=== PATIENT | male | born 1975 | race Caucasian/White ===

== ENCOUNTER 2016-09-16 23:25 | Emergency (ER) | payer MEDICAID ==
[2016-09-16 23:32] VITALS: BP 138/96; PULSE 107; RESP 18; TEMP 98.1
[2016-09-16] MEDS ORDERED: DIPH,PERTUS(ACELL)TETVAC-LF 0.5 ML VIAL IM ONE (23:47)
[2016-09-16] MEDS ORDERED: IBUPROFEN 600 MG STARTER PACK 4 TAB BTL PO STA (23:50)
[2016-09-16] MEDS ORDERED: CEPHALEXIN 500MG STARTER PACK 4 CAP BTL PO STA (23:50)
--- NOTE | 2016-09-16 23:55 | ED ---
General Adult HPI - General Chief complaint: Wound/Laceration Stated complaint: R hand laceration/infection Time Seen by Provider: 09/16/16 23:49 Source: patient, RN notes reviewed Mode of arrival: ambulatory Limitations: no limitations - History of Present Illness Initial comments: Patient 41-year-old male who presents emergency room today with chief complaint of a laceration to the left index finger that occurred approximately 2 days ago. He does admit that he was cleaning the dishes and a knife caught his finger causing a laceration. He is worried about infection today has just been increased redness swelling to this area they see some faint redness coming up the back of his hand. States is unsure of his tetanus status. He denies any other complaints or symptoms. Patient denies any recent fever, chills, shortness of breath, chest pain, back pain, abdominal pain, nausea or vomiting, dysuria or hematuria, constipation or diarrhea, headaches or visual changes, or any other complaints. - Related Data Home Medications Medication Instructions Recorded Confirmed ALPRAZolam 1 mg PO HS 07/10/14 12/08/15 Nortriptyline [Pamelor] 100 mg PO HS 07/10/14 12/08/15 Omeprazole [PriLOSEC] 20 mg PO HS 07/10/14 12/08/15 Ranitidine HCl [Zantac] 150 mg PO HS 07/10/14 12/08/15 Buta/APAP/Caf/Cod 50-882-99-30 1 tab PO DIRECTED PRN 10/27/15 12/08/15 [Fioricet w/Cod 96-189-17-30MG] Previous Rx's Medication Instructions Recorded HYDROcodone/APAP 5-325MG [[place] 5] 1 each PO Q4HR PRN #20 tab 12/08/15 Ibuprofen [Motrin] 600 mg PO Q6HR PRN #20 tab 12/08/15 Orphenadrine [Norflex] 100 mg PO Q12H PRN #12 tablet.er 12/08/15 Cephalexin [Keflex] 500 mg PO Q12HR 10 Days 09/16/16 Ibuprofen [Motrin] 600 mg PO Q6HR PRN #40 day 09/16/16 Allergies Allergy/AdvReac Type Severity Reaction Status Date / Time No Known Allergies Allergy Verified 09/16/16 23:31 Review of Systems ROS Statement: Those systems with pertinent positive or pertinent negative responses have been documented in the HPI. ROS Other: All systems not noted in ROS Statement are negative. Past Medical History Past Medical History: Eye Disorder, GERD/Reflux Additional Past Medical History / Comment(s): LT EYE MUSCLE PROB CHILD. Kidney Stones. IBS. Hiatal Hernia. Migraines. History of Any Multi-Drug Resistant Organisms: None Reported Past Surgical History: Cholecystectomy Additional Past Surgical History / Comment(s): LT Eye Surgery. EXC FATTY TUMOR LT SHOULDER/NECK. Past Anesthesia/Blood Transfusion Reactions: Motion Sickness Past Psychological History: Anxiety Smoking Status: Never smoker Past Alcohol Use History: Occasional Past Drug Use History: None Reported - Past Family History Mother Family Medical History: No Reported History General Exam - General Exam Comments Initial Comments: General: The patient is awake and alert, in no distress, and does not appear acutely ill. Neck: The neck is supple, there is no tenderness or JVD. Cardiovascular: There is a regular rate and rhythm. No murmur, rub or gallop is appreciated. Respiratory: Lungs are clear to auscultation, respirations are non-labored, breath sounds are equal. No wheezes, stridor, rales, or rhonchi. Musculoskeletal/skin: mild swelling to the left index finger. Local redness to the proximal phalanx. Cap refill less than 2 seconds. Patient shows limited range of motion with flexion at the PIP joint. Fully able to extend. Pulses are equal bilaterally 2+. Strength 4/5 due to pain. Mild redness locally to the area with faintness going up the back of the left hand. Neurological: A&O x 3. CN II-XII intact, There are no obvious motor or sensory deficits. Coordination appears grossly intact. Speech is normal. Psychiatric: Normal mood and affect. Limitations: no limitations Course Vital Signs 09/16/16 23:29 Temperature 98.1 F Pulse Rate 107 H Respiratory 18 Rate Blood Pressure 138/96 O2 Sat by Pulse 97 Oximetry Medical Decision Making - Medical Decision Making patient will be started on antibiotics. Advised close follow-up over the next 2 days. Advised return if symptoms increase or worsen. Disposition Clinical Impression: Laceration, Cellulitis Disposition: HOME SELF-CARE Condition: Good Instructions: Laceration (ED) Additional Instructions: Please use medication as discussed. please continue to elevate above the heart.Please follow-up with family doctor in the next 2 days of symptoms have not improved. Please return to emergency room if the symptoms increase or worsen or for any other concerns. Prescriptions: Cephalexin [Keflex] 500 mg PO Q12HR 10 Days Ibuprofen [Motrin] 600 mg PO Q6HR PRN #40 day PRN Reason: Pain Time of Disposition: 23:54
== END 2016-09-17 00:30 | disposition home or self-care (01) ==
LOC: EC 23:25
DX: S61.211A Laceration without foreign body of left index finger without damage to nail, initial encounter (principal); L03.012 Cellulitis of left finger; K21.9 Gastro-esophageal reflux disease without esophagitis; K58.9 Irritable bowel syndrome, unspecified; F41.9 Anxiety disorder, unspecified; Z23 Encounter for immunization; Z79.899 Other long term (current) drug therapy; W26.0XXA Contact with knife, initial encounter
CPT/HCPCS: 90471; 90715; 99282

== ENCOUNTER → 2017-05-11 | Outpatient (CLI) | payer MEDICAID ==
[2017-05-11 20:23] LABS: Basophils # (A) 0.1 k/uL (0-0.2); Basophils % (A) 1 %; Eosinophils # (A) 0.1 k/uL (0-0.7); Eosinophils % (A) 1 %; HCT 52.4 % (39.0-53.0); HGB 17.8 gm/dL (13.0-17.5); Lymphocytes # (A) 2.1 k/uL (1.0-4.8); Lymphocytes % (A) 27 %; MCH 30.5 pg (25.0-35.0); MCHC 33.9 g/dL (31.0-37.0); Mean Platelet Volume 6.7; Monocytes # (A) 0.6 k/uL (0-1.0); Monocytes % (A) 8 %; Neutrophils # (A) 4.8 k/uL (1.3-7.7); Neutrophils % (A) 62 %; Platelet Count 290 k/uL (150-450); RBC 5.82 m/uL (4.30-5.90); RDW 13.7 % (11.5-15.5); WBC 7.8 k/uL (3.8-10.6)
[2017-05-11 20:29] LABS: ALT 83 U/L (21-72); AST 48 U/L (17-59); Albumin 4.5 g/dL (3.5-5.0); Alkaline Phosphatase 161 U/L (38-126); Anion Gap 12 mmol/L; Blood Urea Nitrogen 18 mg/dL (9-20); Carbon Dioxide 24 mmol/L (22-30); Chloride 104 mmol/L (98-107); Cholesterol 318 mg/dL (<200); Glucose 82 mg/dL (74-99); HDL Cholesterol 61 mg/dL (40-60); LDL Cholesterol,Calculated 209 mg/dL (0-99); Potassium 4.1 mmol/L (3.5-5.1); Sodium 140 mmol/L (137-145); Total Bilirubin 1.1 mg/dL (0.2-1.3); Triglycerides 240 mg/dL (<150)
[2017-05-11 20:43] LABS: T4, Free (Free Thyroxine) 1.19 ng/dL (0.78-2.19)
[2017-05-13 08:56] LABS: GGT 66 U/L (15-73)
== END | disposition home or self-care (01) ==
LOC: MMGSC 16:50
PROVIDERS: ATTEND Family Medicine
DX: Z00.00 Encounter for general adult medical examination without abnormal findings (principal); R79.89 Other specified abnormal findings of blood chemistry
CPT/HCPCS: 36415; 80053; 80061; 82977; 84439; 84443; 85025

== ENCOUNTER 2017-09-26 07:44 | Emergency (ER) | payer MEDICAID ==
[2017-09-26] MEDS ORDERED: SODIUM CHLORIDE 0.9% 2,000 ML IV STA (08:01)
[2017-09-26] MEDS ORDERED: ONDANSETRON 4 MG/2 ML VIAL IVP STA (08:01)
[2017-09-26] MEDS ORDERED: SODIUM CHLORIDE 0.9% 1,000 ML IV STA (08:01)
[2017-09-26] MEDS ORDERED: KETOROLAC 30 MG/ML 1 ML VIAL IVP STA (08:25)
[2017-09-26] MEDS ORDERED: ACETAMINOPHEN TAB 500 MG TAB PO STA (08:25)
[2017-09-26 08:35] LABS: Basophils % (A) 1 %; Eosinophils # (A) 0.1 k/uL (0-0.7); Eosinophils % (A) 1 %; HGB 19.9 gm/dL (13.0-17.5); Lymphocytes # (A) 0.9 k/uL (1.0-4.8); Lymphocytes % (A) 10 %; MCH 29.8 pg (25.0-35.0); MCHC 34.5 g/dL (31.0-37.0); MCV 86.3 fL (80.0-100.0); Mean Platelet Volume 6.6; Monocytes # (A) 0.7 k/uL (0-1.0); Monocytes % (A) 7 %; Neutrophils # (A) 7.4 k/uL (1.3-7.7); Neutrophils % (A) 80 %; Platelet Count 223 k/uL (150-450); RBC 6.69 m/uL (4.30-5.90); WBC 9.2 k/uL (3.8-10.6)
[2017-09-26 08:38] LABS: HCT 57.8 % (39.0-53.0)
[2017-09-26 08:42] LABS: Appearance,Urine Clear (Clear); Bacteria,Urine Rare /hpf; Bilirubin,Urine 1+ (Negative); Blood,Urine Small (Negative); Color,Urine Dark Yellow; Glucose,Urine (UA) Negative (Negative); Hyaline Casts,Urine 5 /lpf (0-2); Ketones,Urine 2+ (Negative); Leukocyte Esterase,Urine Negative (Negative); Mucus,Urine Few /hpf; Nitrite,Urine Negative (Negative); Protein,Urine 3+ (Negative); RBC,Urine 1 /hpf (0-5); Specific Gravity,Urine 1.033 (1.001-1.035); Urobilinogen,Urine <2.0 mg/dL (<2.0); WBC,Urine 1 /hpf (0-5)
[2017-09-26 08:44] LABS: Albumin 4.4 g/dL (3.5-5.0); Calcium 9.9 mg/dL (8.4-10.2); Total Protein 7.9 g/dL (6.3-8.2)
--- NOTE | 2017-09-26 09:04 | XR ---
Abdomen HISTORY: Nausea vomiting and diarrhea Frontal view of the abdomen submitted on 2 images and correlated to prior exam 07/10/2014 Surgical clips are present in the right upper quadrant. There is an S-shaped thoracic lumbar scoliosi s. Lung bases are clear. No pneumoperitoneum or bowel obstruction. IMPRESSION: Nonobstructive bowel gas pattern. Follow-up as indicated.
[2017-09-26 09:28] VITALS: RESP 18
--- NOTE | 2017-09-26 09:38 | ED ---
General Adult HPI <Christian Alexis - Last Filed: 09/26/17 11:28> - General Source: patient, RN notes reviewed, old records reviewed Mode of arrival: ambulatory Limitations: no limitations <Sarah Torres - Last Filed: 10/13/17 21:34> - General Chief complaint: Nausea/Vomiting/Diarrhea Stated complaint: Sweats, vomiting, diarrhea Time Seen by Provider: 09/26/17 08:01 - History of Present Illness Initial comments: This patient is a 42 year old male with CC of Nausea, Vomiting, and diarrhea. He reports symptoms for the past few days and waited until he felt quite week to come to ED. Denies significant abdominal pain, but does report some LLQ cramping. Reports sweats and chills. No history of food contamination or travel. Denies bloody stools. (Sarah Torres) - Related Data Home Medications Medication Instructions Recorded Confirmed ALPRAZolam 1 mg PO HS 07/10/14 09/26/17 Nortriptyline [Pamelor] 50 - 100 mg PO HS 07/10/14 09/26/17 Omeprazole [PriLOSEC] 20 mg PO HS 07/10/14 09/26/17 Ranitidine HCl [Zantac] 150 mg PO HS 07/10/14 09/26/17 Naproxen Sodium [Anaprox DS] 550 mg PO Q12H PRN 09/26/17 09/26/17 Previous Rx's Medication Instructions Recorded Ciprofloxacin HCl [Cipro] 500 mg PO Q12HR 7 Days tab 09/26/17 Dicyclomine [Bentyl] 10 mg PO TID #15 capsule 09/26/17 Ondansetron Odt [Zofran Odt] 4 mg PO Q8HR PRN #12 tab 09/26/17 Allergies Allergy/AdvReac Type Severity Reaction Status Date / Time No Known Allergies Allergy Verified 09/26/17 08:40 Review of Systems ROS Other: All systems not noted in ROS Statement are negative. <Christian Alexis - Last Filed: 09/26/17 11:28> ROS Other: All systems not noted in ROS Statement are negative. <Sarah Torres - Last Filed: 10/13/17 21:34> ROS Statement: Those systems with pertinent positive or pertinent negative responses have been documented in the HPI. Past Medical History Past Medical History: Eye Disorder, GERD/Reflux Additional Past Medical History / Comment(s): LT EYE MUSCLE PROB CHILD. Kidney Stones. IBS. Hiatal Hernia. Migraines. History of Any Multi-Drug Resistant Organisms: None Reported Past Surgical History: Cholecystectomy Additional Past Surgical History / Comment(s): LT Eye Surgery. EXC FATTY TUMOR LT SHOULDER/NECK. Past Anesthesia/Blood Transfusion Reactions: Motion Sickness Past Psychological History: Anxiety Smoking Status: Never smoker Past Alcohol Use History: Occasional Past Drug Use History: None Reported - Past Family History Mother Family Medical History: No Reported History <Sarah Torres - Last Filed: 10/13/17 21:34> General Exam <Christian Alexis - Last Filed: 09/26/17 11:28> Limitations: no limitations General appearance: alert, in no apparent distress Head exam: Present: atraumatic, normocephalic, normal inspection Eye exam: Present: normal appearance, PERRL, EOMI. Absent: scleral icterus, conjunctival injection, periorbital swelling ENT exam: Present: normal exam, mucous membranes moist Neck exam: Present: normal inspection. Absent: tenderness, meningismus, lymphadenopathy Respiratory exam: Present: normal lung sounds bilaterally. Absent: respiratory distress, wheezes, rales, rhonchi, stridor Cardiovascular Exam: Present: normal rhythm, tachycardia, normal heart sounds. Absent: regular rate, systolic murmur, diastolic murmur, rubs, gallop, clicks GI/Abdominal exam: Present: soft, tenderness (minimal LLQ tenderness. ), normal bowel sounds. Absent: distended, guarding, rebound, rigid Rectal exam: Present: hemorrhoids Extremities exam: Present: normal inspection, full ROM, normal capillary refill. Absent: tenderness, pedal edema, joint swelling, calf tenderness Back exam: Present: normal inspection Neurological exam: Present: alert, oriented X3, CN II-XII intact Psychiatric exam: Present: normal affect, normal mood <Sarah Torres - Last Filed: 10/13/17 21:34> - General Exam Comments Initial Comments: This is a ill appearing, dehydrated 42 year old male. Moderate discomfort. ( Sarah Torres) Course <Christian Alexis - Last Filed: 09/26/17 11:28> <Sarah Torres - Last Filed: 10/13/17 21:34> Vital Signs 09/26/17 09/26/17 09/26/17 07:52 09:27 11:35 Temperature 98.0 F 98 F Pulse Rate 132 H 115 H 105 H Respiratory 20 18 18 Rate Blood Pressure 111/81 150/95 135/82 O2 Sat by Pulse 97 99 99 Oximetry - Reevaluation(s) Reevaluation #1: 09/26/17 11:29 I did personally do a [id number] evaluation the patient did discuss the findings with him. He is feeling much improved after IV hydration. He does demonstrate evidence of hemoconcentration with prerenal azotemia. He does have diarrhea with possible evidence of colitis he did have blood on his stool exam our he does state he has a hemorrhoid that is bleeding when he wipes and this is the likely source. He will follow-up with his doctor. (Christian Alexis) Medical Decision Making - Lab Data Result diagrams: 09/26/17 08:15 09/26/17 08:15 <Christian Alexis - Last Filed: 09/26/17 11:28> - Lab Data Result diagrams: 09/26/17 08:15 09/26/17 08:15 - Radiology Data Radiology results: report reviewed <Sarah Torres - Last Filed: 10/13/17 21:34> - Medical Decision Making This patient is a 42 year old male with CC of Nausea, Vomiting, and diarrhea. Patient is in room 5. He reports symptoms for the past few days and waited until he felt quite week to come to ED. Patient arrives tachycardic and very dehydrated. Given 2L fluids, nausea medication. Labs show dehydration, prerenal azotemia. Patient did leave stool cuultre. Reports that he is suffering from hemorrhoids as to cause of blood in stool. CT shows evidence of diffuse colitis. At this time with significant dehydration and diarrhea and colitis, will treat patient with antibiotics. Will start on cipro, bentyl. Discussed PCP follow up. (Sarah Torres) - Lab Data Lab Results 09/26/17 09/26/17 09/26/17 Range/Units 08:15 08:15 08:15 WBC 9.2 (3.8-10.6) k/uL RBC 6.69 H (4.30-5.90) m/uL Hgb 19.9 H (13.0-17.5) gm/dL Hct 57.8 H (39.0-53.0) % MCV 86.3 (80.0-100.0) fL MCH 29.8 (25.0-35.0) pg MCHC 34.5 (31.0-37.0) g/dL RDW 13.0 (11.5-15.5) % Plt Count 223 (150-450) k/uL Neutrophils % 80 % Lymphocytes % 10 % Monocytes % 7 % Eosinophils % 1 % Basophils % 1 % Neutrophils # 7.4 (1.3-7.7) k/uL Lymphocytes # 0.9 L (1.0-4.8) k/uL Monocytes # 0.7 (0-1.0) k/uL Eosinophils # 0.1 (0-0.7) k/uL Basophils # 0.0 (0-0.2) k/uL Sodium 138 (137-145) mmol/L Potassium 4.0 (3.5-5.1) mmol/L Chloride 97 L (98-107) mmol/L Carbon Dioxide 24 (22-30) mmol/L Anion Gap 17 mmol/L BUN 25 H (9-20) mg/dL Creatinine 1.40 H (0.66-1.25) mg/dL Est GFR (CKD-EPI)AfAm 71 (>60 ml/min/1.73 sqM) Est GFR (CKD-EPI)NonAf 61 (>60 ml/min/1.73 sqM) Glucose 119 H (74-99) mg/dL Plasma Lactic Acid Bib (0.7-2.0) mmol/L Calcium 9.9 (8.4-10.2) mg/dL Total Bilirubin 1.0 (0.2-1.3) mg/dL AST 66 H (17-59) U/L ALT 72 (21-72) U/L Alkaline Phosphatase 173 H (38-126) U/L Total Protein 7.9 (6.3-8.2) g/dL Albumin 4.4 (3.5-5.0) g/dL Amylase 38 (30-110) U/L Lipase 56 (23-300) U/L Urine Color Dark Yellow Urine Appearance Clear (Clear) Urine pH 6.0 (5.0-8.0) Ur Specific [place] 1.033 (1.001-1.035) Urine Protein 3+ H (Negative) Urine Glucose (UA) Negative (Negative) Urine Ketones 2+ H (Negative) Urine Blood Small H (Negative) Urine Nitrite Negative (Negative) Urine Bilirubin 1+ H (Negative) Urine Urobilinogen <2.0 (<2.0) mg/dL Ur Leukocyte Esterase Negative (Negative) Urine RBC 1 (0-5) /hpf Urine WBC 1 (0-5) /hpf Urine Bacteria Rare H (None) /hpf Hyaline Casts 5 H (0-2) /lpf Urine Mucus Few H (None) /hpf Stool Occult Blood (Negative) C. difficile (EIA) Intrp (Negative) 09/26/17 09/26/17 09/26/17 Range/Units 08:15 09:16 09:16 WBC (3.8-10.6) k/uL RBC (4.30-5.90) m/uL Hgb (13.0-17.5) gm/dL Hct (39.0-53.0) % MCV (80.0-100.0) fL MCH (25.0-35.0) pg MCHC (31.0-37.0) g/dL RDW (11.5-15.5) % Plt Count (150-450) k/uL Neutrophils % % Lymphocytes % % Monocytes % % Eosinophils % % Basophils % % Neutrophils # (1.3-7.7) k/uL Lymphocytes # (1.0-4.8) k/uL Monocytes # (0-1.0) k/uL Eosinophils # (0-0.7) k/uL Basophils # (0-0.2) k/uL Sodium (137-145) mmol/L Potassium (3.5-5.1) mmol/L Chloride (98-107) mmol/L Carbon Dioxide (22-30) mmol/L Anion Gap mmol/L BUN (9-20) mg/dL Creatinine (0.66-1.25) mg/dL Est GFR (CKD-EPI)AfAm (>60 ml/min/1.73 sqM) Est GFR (CKD-EPI)NonAf (>60 ml/min/1.73 sqM) Glucose (74-99) mg/dL Plasma Lactic Acid Bib 1.4 (0.7-2.0) mmol/L Calcium (8.4-10.2) mg/dL Total Bilirubin (0.2-1.3) mg/dL AST (17-59) U/L ALT (21-72) U/L Alkaline Phosphatase (38-126) U/L Total Protein (6.3-8.2) g/dL Albumin (3.5-5.0) g/dL Amylase (30-110) U/L Lipase (23-300) U/L Urine Color Urine Appearance (Clear) Urine pH (5.0-8.0) Ur Specific [place] (1.001-1.035) Urine Protein (Negative) Urine Glucose (UA) (Negative) Urine Ketones (Negative) Urine Blood (Negative) Urine Nitrite (Negative) Urine Bilirubin (Negative) Urine Urobilinogen (<2.0) mg/dL Ur Leukocyte Esterase (Negative) Urine RBC (0-5) /hpf Urine WBC (0-5) /hpf Urine Bacteria (None) /hpf Hyaline Casts (0-2) /lpf Urine Mucus (None) /hpf Stool Occult Blood Positive (Negative) C. difficile (EIA) Intrp Negative (Negative) - Radiology Data Mild diffuse wall thickening seen throughout the colon which may reflect infectious colitis. Correlate clinically. (Sarah Torres) Disposition <Christian Alexis - Last Filed: 09/26/17 11:28> Is patient prescribed a controlled substance at d/c from ED?: No When asked, does pt state using other controlled substances?: No If prescribed controlled substance>3 days was MAPS reviewed?: No Time of Disposition: 11:19 <Sarah Torres - Last Filed: 10/13/17 21:34> Clinical Impression: Infectious colitis Disposition: HOME SELF-CARE Condition: Good Instructions: Acute Nausea and Vomiting (ED), Infectious Colitis (ED) Additional Instructions: Patient has a follow-up with primary care provider. Return to the emergency department if any alarming signs or symptoms occur. Rest, remain hydrated. Take the medications as prescribed. Prescriptions: Ciprofloxacin HCl [Cipro] 500 mg PO Q12HR 7 Days tab Dicyclomine [Bentyl] 10 mg PO TID #15 capsule Ondansetron Odt [Zofran Odt] 4 mg PO Q8HR PRN #12 tab PRN Reason: Nausea Referrals: Dee Wells MD [Primary Care Provider] - 1-2 days
[2017-09-26] MEDS ORDERED: RX INFO: IV CONTRAST WAS GIVEN 1 EACH MISC MISCELLANE PRN (09:59)
--- NOTE | 2017-09-26 10:41 | CT ---
EXAMINATION TYPE: CT abdomen pelvis w con DATE OF EXAM: 09/26/2017 COMPARISON: NONE HISTORY: Nausea, vomiting, and diarrhea CT DLP: 2550.4 mGycm CONTRAST: CT scan of the abdomen and pelvis is performed without Oral Contrast and with IV Contrast, patient in jected with 80 mL of Isovue 300. FINDINGS: LUNG BASES-: No visible nodule. No infiltrate. LIVER/GB: The gallbladder surgically absent. Small cystic lesion is seen within the dome of the graeme er left hepatic lobe. No solid space occupying hepatic lesion. Biliary tree is of normal caliber. PANCREAS: No inflammation. No distinct mass. SPLEEN: No splenic enlargement. No lesion seen. ADRENALS: No nodule. No thickening. KIDNEYS/BLADDER: No hydronephrosis. No nephrolithiasis. No distinct renal mass. Urinary bladder g rossly unremarkable. BOWEL: Normal appendix. There is mild diffuse wall thickening seen throughout the colon which may ref lect infectious colitis. Correlate clinically. Small bowel is of normal caliber. No evidence for free air or abscess. GENITAL ORGANS: No gross abnormality. LYMPH NODES: No greater than 1cm abdominal or pelvic lymph nodes are appreciated. AORTA: No significant abnormality. OSSEOUS STRUCTURES: No significant abnormality is seen. OTHER: No significant additional abnormality is seen. IMPRESSION: 1. There is mild diffuse wall thickening seen throughout the colon which may reflect infectious colit is. Correlate clinically. 2. Small hepatic cysts. 3. Mild hepatic steatosis.
[2017-09-26 11:36] VITALS: BP 135/82; PULSE 105; TEMP 98
== END 2017-09-26 11:36 | disposition home or self-care (01) ==
LOC: EC 07:44
DX: A09 Infectious gastroenteritis and colitis, unspecified (principal); E86.0 Dehydration; R00.0 Tachycardia, unspecified; R79.89 Other specified abnormal findings of blood chemistry; K64.9 Unspecified hemorrhoids; K21.9 Gastro-esophageal reflux disease without esophagitis; F41.9 Anxiety disorder, unspecified; Z79.899 Other long term (current) drug therapy; Z90.49 Acquired absence of other specified parts of digestive tract
CPT/HCPCS: 36415; 80053; 82150; 83605; 83690; 85025; 82272; 81001; 87040; 87324; 87045; 87046; 74018; 74177; 99285; 96374; 96375; 96361 ×3; J2405; J1885; Q9967

== ENCOUNTER 2017-10-25 10:35 | Day surgery (SDC) | payer MEDICAID ==
[2017-10-24 09:10] VITALS: BMI 37.6
[~2017-10-25 10:35] MED LIST: LACTATED RINGERS 1,000 ML IV SCH; LIDOCAINE 1% 20 ML VIAL (10MG/ML) FOR IV START INTRADERMA PRN; MIDAZOLAM 2 MG/2 ML VIAL IV PRN; SCOPOLAMINE 1.5MG/72HR PATCH TRANSDERM ONE
[2017-10-25 10:53] VITALS: RESP 16; TEMP 98
[2017-10-25] MEDS ORDERED: PROPOFOL 10 MG/ML 20 ML VIAL IV ONE (11:57)
[2017-10-25] MEDS ORDERED: LIDOCAINE 1% INJ 10MG/ML (20 ML MDV) ONE (11:57)
--- NOTE | 2017-10-25 12:31 | P.PCN ---
Date of Procedure: 10/25/17 Procedure(s) Performed: Procedure: Esophagogastroduodenoscopy and biopsy. Preoperative diagnosis: History of Warner's esophagus. Postoperative diagnosis: Sliding hiatal hernia and short segment of Barretts as previously described, multiple biopsies obtained. Preparation sedation: Was provided by anesthesia. Brief clinical history: The patient is a 42-year-old male with chronic reflux symptoms requiring ongoing medical therapy. His last upper endoscopy was in October 2015 and that showed a short segment of Warner's esophagus. Biopsies did not reveal any evidence of dysplasia. This is part of his surveillance. The patient would have recurrence of his heartburn if he misses his medications by one day. No dysphagia or other alarm symptoms. Procedure: With the patient on his left lateral decubitus position and after informed consent and adequate sedation, I passed the Olympus-GIF 160 video upper endoscope through the cricopharyngeus down the esophagus. GE junction was around 35-36 cm from the incisors and there was a short segment of Barretts as previously described with a 2 cm sliding hiatal hernia. The esophagus did not show any obvious esophagitis or strictures. The endoscope was then passed into the stomach which was insufflated with air and inspected in detail including the retroflex view in the cardia. No obvious abnormalities were seen. Pyloric channel, duodenal bulb, post bulbar area and descending duodenum appeared within normal limits. I obtained multiple biopsies from the Warner's segment then the endoscope was withdrawn. The patient tolerated the procedure well. Plan: The patient was reassured. Will await biopsy results. I anticipate repeating this exam in 2-3 years. Will continue antireflux diet and measures and acid suppressive therapy. He will follow up with you as planned and I will keep you updated on his progress.
[2017-10-25 12:42] VITALS: BP 128/85; PULSE 93
== END 2017-10-25 13:30 | disposition home or self-care (01) ==
LOC: ORWHC2ENDO 10:35
DX: K22.70 Barrett's esophagus without dysplasia (principal); K44.9 Diaphragmatic hernia without obstruction or gangrene; K21.9 Gastro-esophageal reflux disease without esophagitis; K58.9 Irritable bowel syndrome, unspecified; Z87.442 Personal history of urinary calculi; Z79.899 Other long term (current) drug therapy
CPT/HCPCS: 88305; 43239; J2001; J2704

== ENCOUNTER → 2020-01-01 | Outpatient (CLI) | payer MEDICAID | END | disposition home or self-care (01) | LOC: LABMAIN 16:14 | PROVIDERS: ATTEND Emergency Medicine | DX: Z20.828 Contact with and (suspected) exposure to other viral communicable diseases (principal) ==

== ENCOUNTER 2020-09-12 20:19 | Emergency (ER) | payer MEDICAID ==
[2020-09-12 20:25] VITALS: BP 102/65; PULSE 94; RESP 18; TEMP 98
[2020-09-12] MEDS ORDERED: KETOROLAC 15 MG/ML 1 ML VIAL IM STA (20:41)
[2020-09-12] MEDS ORDERED: LIDOCAINE 1% INJ 10MG/ML (20 ML MDV) SQ ONE (20:41)
--- NOTE | 2020-09-12 20:48 | XR ---
EXAMINATION TYPE: XR hand complete LT DATE OF EXAM: 09/12/2020 COMPARISON: NONE HISTORY: Hand laceration TECHNIQUE: 3 views FINDINGS: I see no fracture nor dislocation. Metacarpals are intact. There are small degenerative cys ts in the third metacarpal head. There are small degenerative cyst in the head of the middle phalanx of the middle finger. There is no subluxation. There is no evidence of foreign body. IMPRESSION: No acute bony abnormality.
--- NOTE | 2020-09-12 21:07 | ED ---
General Adult HPI - General Chief complaint: Wound/Laceration Stated complaint: Hand lac Time Seen by Provider: 09/12/20 20:26 Source: patient, RN notes reviewed Mode of arrival: ambulatory Limitations: no limitations - History of Present Illness Initial comments: 45-year-old male presents to the emergency department for chief complaint of laceration to the left hand. Patient reports he was cutting something for dinner when he lacerated his left hand. States his tetanus is up-to-date within the past 5 years. Patient denies any difficulty moving the fingers. Denies any loss of sensation.Patient has no other complaints at this time including shortness of breath, chest pain, abdominal pain, nausea or vomiting, headache, or visual changes. - Related Data Home Medications Medication Instructions Recorded Confirmed ALPRAZolam 1 mg PO HS 07/10/14 10/25/17 Nortriptyline [Pamelor] 50 - 100 mg PO HS 07/10/14 10/25/17 Omeprazole [PriLOSEC] 20 mg PO HS 07/10/14 10/25/17 Ranitidine HCl [Zantac] 150 mg PO HS 07/10/14 10/25/17 Naproxen Sodium [Anaprox DS] 550 mg PO Q12H PRN 09/26/17 10/25/17 Previous Rx's Medication Instructions Recorded Ondansetron Odt [Zofran Odt] 4 mg PO Q8HR PRN #12 tab 09/26/17 Cephalexin [Keflex] 500 mg PO Q6HR 5 Days #20 cap 09/12/20 Allergies Allergy/AdvReac Type Severity Reaction Status Date / Time No Known Allergies Allergy Verified 09/12/20 20:25 Review of Systems ROS Statement: Those systems with pertinent positive or pertinent negative responses have been documented in the HPI. ROS Other: All systems not noted in ROS Statement are negative. Past Medical History Past Medical History: Eye Disorder, GERD/Reflux Additional Past Medical History / Comment(s): LT EYE MUSCLE PROB CHILD. Kidney Stones,IBS, Hiatal Hernia, Migraines, Warner's esophagus, History of Any Multi-Drug Resistant Organisms: None Reported Past Surgical History: Cholecystectomy Additional Past Surgical History / Comment(s): LT Eye Surgery. EXC FATTY TUMOR LT SHOULDER/NECK. EGD's, Past Anesthesia/Blood Transfusion Reactions: Motion Sickness Past Psychological History: Anxiety Smoking Status: Never smoker Past Alcohol Use History: Rare Past Drug Use History: None Reported - Past Family History Mother Family Medical History: No Reported History General Exam Limitations: no limitations General appearance: alert, in no apparent distress Head exam: Present: atraumatic, normocephalic, normal inspection Eye exam: Present: normal appearance, PERRL, EOMI. Absent: scleral icterus, conjunctival injection, periorbital swelling ENT exam: Present: normal exam, mucous membranes moist Neck exam: Present: normal inspection. Absent: tenderness, meningismus, lymph adenopathy Respiratory exam: Present: normal lung sounds bilaterally. Absent: respiratory distress, wheezes, rales, rhonchi, stridor Cardiovascular Exam: Present: regular rate, normal rhythm, normal heart sounds Extremities exam: Present: full ROM (Full range of motion of all digits of the left hand including the left second digit.), normal capillary refill (Capillary refill less than 2 seconds, radial pulse 2+ left upper extremity.), other (Patient has a 3 cm laceration on the radial aspect of the left second metacarp al head.) Course Vital Signs 09/12/20 20:21 Temperature 98.0 F Pulse Rate 94 Respiratory 18 Rate Blood Pressure 102/65 O2 Sat by Pulse 95 Oximetry Procedures - Laceration Laceration #1 Consent Obtained: verbal consent Indication: laceration Site: hand Size (cm): 3 Description: linear Depth: simple, single layer Anesthetic Used: lidocaine 1% Anesthesia Technique: local infiltration Amount (mls): 3 Pre-repair: wound explored, irrigated extensively Type of Sutures: nylon Size of Sutures: 4-0 Number of Sutures: 6 Technique: simple, interrupted Patient Tolerated Procedure: well, no complications Medical Decision Making - Medical Decision Making Laceration was irrigated and explored. I do not see any evidence for deep structure injury or foreign body. Full range of motion of all digits of the left hand. X-ray shows no acute process. I did discuss small bony cysts. Tetanus was updated. Patient was educated on care parameters. He will return in 7-10 days for suture removal. He will monitor for signs of infection and return earlier if these occur. Disposition Clinical Impression: Laceration Disposition: HOME SELF-CARE Condition: Good Instructions (If sedation given, give patient instructions): Care For Your Stitches (ED), Laceration (ED) Additional Instructions: Keep the area clean and dry. Apply antibiotic ointment twice daily. Wash with gentle soap and water at least once daily. Return in 7-10 days for suture removal. Return earlier if he notices any signs of infection such as spreading or streaking redness, drainage, or fever or any other concerning symptoms. Prescriptions: Cephalexin [Keflex] 500 mg PO Q6HR 5 Days #20 cap Is patient prescribed a controlled substance at d/c from ED?: No Referrals: Dee Wells MD [Primary Care Provider] - 1-2 days Time of Disposition: 21:06
[2020-09-12] MEDS ORDERED: BACITRACIN OINT 1 EACH PACKET TOPICAL STA (21:29)
[2020-09-12] MEDS ORDERED: CEPHALEXIN 500MG STARTER PACK 4 CAP BTL PO STA (21:43)
== END 2020-09-12 21:43 | disposition home or self-care (01) ==
LOC: EC 20:19
DX: S61.211A Laceration without foreign body of left index finger without damage to nail, initial encounter (principal); F41.9 Anxiety disorder, unspecified; K21.9 Gastro-esophageal reflux disease without esophagitis; G43.909 Migraine, unspecified, not intractable, without status migrainosus; Z87.442 Personal history of urinary calculi; Z79.899 Other long term (current) drug therapy; W26.9XXA Contact with unspecified sharp object(s), initial encounter
CPT/HCPCS: 73130; 99283; 96372; 12002; J2001; J1885

== ENCOUNTER 2021-02-06 20:09 | Emergency (ER) | payer MEDICAID ==
[2021-02-06 20:20] VITALS: TEMP 98.2
[2021-02-06] MEDS ORDERED: LIDOCAINE 1% INJ 10MG/ML (20 ML MDV) SQ ONE (20:40)
[2021-02-06] MEDS ORDERED: BACITRACIN OINT 1 EACH PACKET TOPICAL ONE (20:41)
[2021-02-06 21:32] VITALS: BP 131/85; PULSE 76; RESP 18
--- NOTE | 2021-02-06 21:33 | ED ---
Wound/Laceration HPI - General Chief Complaint: Wound/Laceration Stated Complaint: L Thumb Lac Time Seen by Provider: 02/06/21 20:28 Source: patient, RN notes reviewed Mode of arrival: ambulatory - History of Present Illness Initial Comments: Patient is a 45-year-old male presenting to the emergency Department with complaints of a laceration to his left thumb. Patient states she was slicing some meat when he accidentally sliced his left thumb. This happened just prior to arrival. His tetanus shot is up-to-date. He is not on blood thinners, bleeding is controlled with bandage. There are no further complaints. - Related Data Home Medications Medication Instructions Recorded Confirmed ALPRAZolam 1 mg PO HS 07/10/14 10/25/17 Nortriptyline [Pamelor] 50 - 100 mg PO HS 07/10/14 10/25/17 Omeprazole [PriLOSEC] 20 mg PO HS 07/10/14 10/25/17 Ranitidine HCl [Zantac] 150 mg PO HS 07/10/14 10/25/17 Naproxen Sodium [Anaprox DS] 550 mg PO Q12H PRN 09/26/17 10/25/17 Previous Rx's Medication Instructions Recorded Ondansetron Odt [Zofran Odt] 4 mg PO Q8HR PRN #12 tab 09/26/17 Cephalexin [Keflex] 500 mg PO Q6HR 5 Days #20 cap 09/12/20 Allergies Allergy/AdvReac Type Severity Reaction Status Date / Time No Known Allergies Allergy Verified 02/06/21 20:20 Review of Systems ROS Statement: Those systems with pertinent positive or pertinent negative responses have been documented in the HPI. ROS Other: All systems not noted in ROS Statement are negative. Past Medical History Past Medical History: Eye Disorder, GERD/Reflux Additional Past Medical History / Comment(s): LT EYE MUSCLE PROB CHILD. Kidney Stones,IBS, Hiatal Hernia, Migraines, Warner's esophagus, History of Any Multi-Drug Resistant Organisms: None Reported Past Surgical History: Cholecystectomy Additional Past Surgical History / Comment(s): LT Eye Surgery. EXC FATTY TUMOR LT SHOULDER/NECK. EGD's, Past Anesthesia/Blood Transfusion Reactions: Motion Sickness Past Psychological History: Anxiety Smoking Status: Never smoker Past Alcohol Use History: Rare Past Drug Use History: None Reported - Past Family History Mother Family Medical History: No Reported History General Exam - General Exam Comments Initial Comments: GENERAL: Patient is well-developed and well-nourished. Patient is nontoxic and in no acute distress. HEAD: Atraumatic, normocephalic. EYES: Pupils equal round and reactive to light, extraocular movements intact, sclera anicteric, conjunctiva are normal. Eyelids were unremarkable. LUNGS: Unlabored respirations. Breath sounds clear to auscultation bilaterally and equal. No wheezes rales or rhonchi. HEART: Regular rate and rhythm without murmurs, rubs or gallops. MUSCULOSKELETAL: He has full extension of his left thumb and flexion. Normal extremities with adequate strength and normal range of motion, no pitting or edema. No clubbing or cyanosis. NEUROLOGICAL: Patient is alert and oriented x 3. SKIN: Warm, Dry, normal turgor, no rashes. Patient has a 1 cm laceration over the dorsal aspect of the left thumb over the IP joint. Bleeding is controlled. Course Vital Signs 02/06/21 20:17 Temperature 98.2 F Pulse Rate 100 Respiratory 19 Rate Blood Pressure 134/91 O2 Sat by Pulse 96 Oximetry Procedures - Laceration Laceration #1 Consent Obtained: verbal consent Indication: laceration Site: hand (Left thumb) Size (cm): 1 Description: linear Depth: simple, single layer Anesthetic Used: lidocaine 1% Anesthesia Technique: local infiltration Amount (mls): 2 Pre-repair: irrigated extensively Type of Sutures: nylon Size of Sutures: 4-0 Number of Sutures: 4 Technique: simple, interrupted Patient Tolerated Procedure: well Medical Decision Making - Medical Decision Making Patient is a 45-year-old male here with a 1 cm laceration to dorsal aspect of the left thumb, near the IP joint. He is on blood thinners, no active bleeding. Tetanus is up-to-date. Patient's wound was cleaned, closed with 4, 4-0 sutures. He tolerated procedure well. He will suture removed in 7-10 days. He is stable for discharge. Disposition Clinical Impression: Laceration of left thumb Disposition: HOME SELF-CARE Condition: Stable Instructions (If sedation given, give patient instructions): Care For Your Stitches (ED) Additional Instructions: Please return to the Emergency Department if symptoms worsen or any other concerns. Keep area clean and dry. Stitches need to be removed in 7-10 days. Is patient prescribed a controlled substance at d/c from ED?: No Referrals: Dee Wells MD [Primary Care Provider] - 1-2 days Time of Disposition: 21:33
== END 2021-02-06 21:54 | disposition home or self-care (01) ==
LOC: EC 20:09
DX: S61.012A Laceration without foreign body of left thumb without damage to nail, initial encounter (principal); K21.9 Gastro-esophageal reflux disease without esophagitis; F41.9 Anxiety disorder, unspecified; Z90.49 Acquired absence of other specified parts of digestive tract; Z87.442 Personal history of urinary calculi; W26.0XXA Contact with knife, initial encounter
CPT/HCPCS: 99282; 12001; J2001

== ENCOUNTER → 2021-11-26 | Outpatient (CLI) | payer MEDICAID ==
--- NOTE | 2021-11-26 12:24 | XR ---
EXAMINATION TYPE: XR ankle complete RT DATE OF EXAM: 11/26/2021 COMPARISON: NONE HISTORY: Pain FINDINGS: Three views of the ankle demonstrate the ankle mortise to be intact and symmetric. The joint spaces are preserved. The osseous structures are intact. Soft tissue ossifications or calcifications poste rior to the ankle joint. Bone island seen overlying the calcaneus and there are calcaneal spurs. Ther e is abnormal morphology of the talar dome. IMPRESSION: 1. Recommend MRI of the ankle to assess the talar dome for possible osteochondritis. 2. Hypertrophic changes involving the medial compartment of the knee joint
--- NOTE | 2021-11-26 12:28 | XR ---
EXAMINATION TYPE: XR foot complete RT DATE OF EXAM: 11/26/2021 COMPARISON: NONE HISTORY: Pain TECHNIQUE: Three views are submitted. FINDINGS: The osseous structures are intact. There is no acute fracture or dislocation. Severe arthropathy f irst MTP joint with spurring. Calcaneal spurs noted. Sclerotic density base fifth metatarsal compatib le with bone island. IMPRESSION: 1. No acute fracture or dislocation. If symptoms persist, follow-up exam in 7 to 10 days could be ob tained.
== END | disposition home or self-care (01) ==
LOC: RADXRMAIN 11:57
PROVIDERS: ATTEND Family Medicine
DX: M19.071 Primary osteoarthritis, right ankle and foot (principal)

== ENCOUNTER 2021-12-08 10:54 | Day surgery (SDC) | payer MEDICAID ==
[2021-12-07 12:36] VITALS: BMI 38.0
[~2021-12-08 10:54] MED LIST changes: +LIDOCAINE 1% (10MG/ML) FOR IV START INTRADERMA PRN; -LIDOCAINE 1% 20 ML VIAL (10MG/ML) FOR IV START INTRADERMA PRN; -MIDAZOLAM 2 MG/2 ML VIAL IV PRN; -SCOPOLAMINE 1.5MG/72HR PATCH TRANSDERM ONE
[2021-12-08 11:14] VITALS: TEMP 97.5
[2021-12-08] MEDS ORDERED: PROPOFOL 10 MG/ML 20 ML VIAL IV ONE (12:00)
[2021-12-08] MEDS ORDERED: LIDOCAINE 2% INJ 20 MG/ML (2 ML VIAL) ONE (12:00)
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
[2021-12-08 12:31] VITALS: RESP 15
--- NOTE | 2021-12-08 12:32 | P.PCN ---
Date of Procedure: 12/08/21 Procedure(s) Performed: PREOPERATIVE DIAGNOSIS: GERD, Warner's esophagus, change in bowel habits, screening POSTOPERATIVE DIAGNOSIS: Gastritis, small hiatal hernia, Warnre's esophagus, descending colon polyp PROCEDURE: 1. EGD with biopsy 2. Colonoscopy with snare polypectomy ANESTHESIA: [facility] [place] SURGEON: Leobardo Jimenez M.D. SPECIMENS: Antrum, Warner's esophagus, polyp ENDOSCOPIC PROCEDURE: The patient was on the endoscopy table in the left decubitus position. The Olympus gastroscope was inserted into the oropharynx and passed under direct visualization to the region of the third portion of the duodenum. From that point the scope was slowly withdrawn inspecting all surfaces carefully. There were no neoplastic inflammatory or polypoid lesions throughout the duodenum. The pylorus was widely patent. The stomach was carefully inspected. There was mild gastritis present. A biopsy of the antrum took place to rule out H. pylori. Retroflexion revealed a small sliding hiatal hernia. GE junction was 1.5 cm above the diaphragmatic hiatus. Patient had a 2 cm portion of distal esophagus with obvious Warner's changes. No inflammation. Biopsies of the Warner's esophagus took place. The remainder of the esophagus looked normal. The patient was kept on the endoscopy table in the left decubitus position. The Olympus colonoscope was inserted into the anus and passed under direct visualization to the base of the cecum. The appendiceal orifice was visualized. From that point the scope was slowly withdrawn inspecting all surfaces carefully. There were no neoplastic inflammatory or polypoid lesions throughout the cecum, ascending, and transverse colon. The descending colon a small polyp was seen and removed using the snare with cautery technique. The remainder of the descending sigmoid and rectum appeared normal. There was no visible diverticulosis. Digital rectal examination was normal. The patient was taken to the recovery room in stable condition per anesthesia guidelines. RECOMMENDATIONS: Await biopsy results. Tentatively plan repeat EGD and colonoscopy 5 years. Continue antiacids.
[2021-12-08 12:42] VITALS: PULSE 67
[2021-12-08 12:48] VITALS: BP 129/86
== END 2021-12-08 13:03 | disposition home or self-care (01) ==
LOC: ORWHC2ENDO 10:54
PROVIDERS: ATTEND Surgery
DX: K22.70 Barrett's esophagus without dysplasia (principal); D12.4 Benign neoplasm of descending colon; K29.50 Unspecified chronic gastritis without bleeding; K44.9 Diaphragmatic hernia without obstruction or gangrene; K31.A19 Gastric intestinal metaplasia without dysplasia, unspecified site; K21.9 Gastro-esophageal reflux disease without esophagitis; I10 Essential (primary) hypertension; H54.40 Blindness, one eye, unspecified eye; Z87.442 Personal history of urinary calculi; K58.0 Irritable bowel syndrome with diarrhea; G43.909 Migraine, unspecified, not intractable, without status migrainosus; F41.9 Anxiety disorder, unspecified; Z79.899 Other long term (current) drug therapy
CPT/HCPCS: 88305; 45385; 43239; J2704; J2001

== ENCOUNTER → 2021-12-14 | Outpatient (CLI) | payer MEDICAID ==
[2021-12-14 09:51] LABS: African American GFR (CKD) >90 (>60 ml/min/1.73 sqM); Blood Urea Nitrogen 27 mg/dL (9-20); Non-African American GFR(CKD) 87 (>60 ml/min/1.73 sqM)
--- NOTE | 2021-12-14 12:35 | CT ---
EXAMINATION TYPE: CT ChestAbdPelvis w con CT DLP: 2577.0 mGycm, Automated exposure control for dose reduction was used. DATE OF EXAM: 12/14/2021 11:20 AM COMPARISON: None available. CLINICAL INDICATION:Male, 46 years old with history of M85.69 Bone lesions; Technique: Multiple axial images of the chest, abdomen, and pelvis were obtained following the intrav enous administration of 70 mL Isovue-300. Oral contrast administered. Two-dimensional coronal and sag ittal reconstructions were obtained. Findings: CHEST: LUNGS/ PLEURA: No pleural effusion, pneumothorax, or focal consolidation. No concerning pulmonary nod ules or masses. AIRWAY: Patent and unremarkable. HEART: Size within normal limits. No pericardial effusion. MEDIASTINUM: No gross evidence of adenopathy. VASCULATURE: No aortic aneurysm. Aberrant right subclavian artery. MUSCULOSKELETAL: No acute osseous abnormalities. SOFT TISSUES/LYMPH NODES: Unremarkable. LOWER NECK: No significant findings. ABDOMEN: ABDOMEN LIVER: Subcentimeter hypodense lesion within the right hepatic lobe which is too small to characteriz e. GALLBLADDER AND BILE DUCTS: Post cholecystectomy. No biliary ductal dilatation. PANCREAS: Unremarkable. SPLEEN: Unremarkable. ADRENAL GLANDS: Unremarkable. KIDNEYS AND URETERS: No hydronephrosis or renal calculi. Duplicated right collecting system. Left lesley al cyst measuring up to 2 cm. PELVIS BLADDER: Unremarkable REPRODUCTIVE: Coarse calcifications of the prostate gland are identified. ABDOMEN & PELVIS STOMACH AND BOWEL: Stomach and duodenum are unremarkable. No focal wall thickening. Enteric contrast reaches the descending colon. The appendix is within normal limits. No evidence of bowel obstruction. PERITONEUM: No evidence of pneumoperitoneum or free fluid. VASCULATURE: No evidence of aortic aneurysm. MUSCULOSKELETAL: No acute osseous abnormalities. Posterior right acetabulum sclerotic lesion measurin g up to 6 mm. Additional sclerotic foci within the right femoral neck and left iliac bone measuring u p to 7 mm. Degenerative changes of the lumbar spine at L4-L5 with disc space narrowing, endplate scle rosis, and vacuum disc disease. LYMPH NODES: No evidence for lymphadenopathy. SOFT TISSUE/ABDOMINAL WALL: Small fat filled lumbrical hernia. IMPRESSION: * No acute process within the chest, abdomen and pelvis. No pathologic lymphadenopathy. * Scattered small scattered foci within the pelvic bones. These likely represent benign bone islands versus other etiologies. Correlation with concurrent nuclear medicine bone scan is recommended.
--- NOTE | 2021-12-14 14:58 | NM ---
EXAMINATION TYPE: NM bone scan whole body DATE OF EXAM: 12/14/2021 COMPARISON: CT scan 12/14/2021 HISTORY: Abnormal CAT scan Delayed whole-body scanning was performed following the injection of 26.5 mCi Tc 99m MDP. Images acq uired 3.75 hours post injection. FINDINGS: There is a focal area of abnormal uptake involving the right clavicle not included in the field-of-vi ew on the CT scan. Abnormal uptake mild to moderate intensity throughout the vertebral column most likely is degenerativ e. Small foci of sclerosis on the CT scan too small less than evaluate by nuclear medicine exam Abnormal uptake involving the right ankle and foot likely in the basis of previous trauma or arthriti s. Nonspecific patchy uptake in the bilateral rib cage with no definite corresponding CT abnormality. IMPRESSION: 1. Intense abnormal uptake right mid clavicle not included in the [id number] of the CAT scan recom mend dedicated x-ray series of the right clavicle. 2. Nonspecific patchy uptake involving the rib cage with no corresponding CT abnormality. 3. Nonspecific uptake throughout the thoracic and lower lumbar spine most likely degenerative. 4. intense abnormal uptake involving the right ankle and first MTP joint. Correlation with x-ray of suggesting finding involving the first MTP joint is arthritic. However, finding involving th e right ankle joint suspicious for osteochondritis. As noted by the x-ray dictation of 11/26/2021, MRI of the ankle is recommended to assess the talar dome for possible osteochondritis dissecans.
== END | disposition home or self-care (01) ==
LOC: RADNMMAIN 08:45
PROVIDERS: ATTEND Internal Medicine
DX: M85.69 Other cyst of bone, multiple sites (principal)
CPT/HCPCS: 82565; 84520; 71260; 74177; 36415; 78306; A9503; Q9967 ×2

== ENCOUNTER → 2022-04-09 | Outpatient (CLI) | payer MEDICAID ==
--- NOTE | 2022-04-10 05:32 | MR ---
EXAMINATION TYPE: MR ankle RT wo con DATE OF EXAM: 04/09/2022 COMPARISON: None HISTORY: Right ankle pain, hx of injury/abnormal Xray. Multiplanar multiecho imaging of the right ankle without contrast. There is some narrowing of the ankle joint space. There are subchondral cystic changes in the medial and lateral dome of the talus. There are some cystic changes in the body of the calcaneus. No calcane al fracture. The Achilles tendon is intact. Plantar fascia shows some mild thickening near the attach ment on the calcaneus. There is a mild spurring of the anterior and posterior malleolus of the ankle. There is narrowing of the talonavicular joint space. The medial and lateral flexor tendons of the an kle appear intact. There is small degenerative cysts in the lateral aspect of the articular surface o f the distal tibia. No talus fracture seen. IMPRESSION: Degenerative cyst formation on both sides of the lateral joint space of the ankle as well as the medi al dome of the talus. There is degenerative cyst formation in the body of the calcaneus close to the subtalar joint. No evidence of ligament or tendon tear. Ankle joint space narrowing. There is some mi ld thickening and edema in the posterior plantar fascia.
== END | disposition home or self-care (01) ==
LOC: RADMRIMAIN 07:43
PROVIDERS: ATTEND Family Medicine
DX: M85.661 Other cyst of bone, right lower leg (principal); M25.571 Pain in right ankle and joints of right foot; R60.0 Localized edema

== ENCOUNTER → 2022-05-28 | Outpatient (CLI) | payer MEDICAID ==
--- NOTE | 2022-05-28 09:27 | US ---
EXAMINATION TYPE: US kidneys/renal and bladder DATE OF EXAM: 05/28/2022 COMPARISON: CT 12/14/2021, US 04/12/2014 CLINICAL HISTORY: R31.9 HEMATURIA, UNSPECIFIED. Hematuria. Hx kidney stones. EXAM MEASUREMENTS: Right Kidney: 11.4 x 4.5 x 4.6 cm Left Kidney: 12.0 x 5.7 x 5.8 cm Right Kidney: Appearance of slightly irregular contour. Possible duplicated collecting system. Left Kidney: Anechoic area seen medially: 2.0 x 1.9 x 1.8 cm. Bladder: Appears anechoic. Bilateral Jets seen: Yes No hydronephrosis or nephrolithiasis identified. Duplicated right collecting system demonstrated bladimir esponding to CT. Left renal sinus cyst measuring up to 2.0 cm. Bladder is underdistended and anechoic with bilateral ureteral jets identified. IMPRESSION: 1. No hydronephrosis or nephrolithiasis identified. 2. Duplicated right collecting system.
== END | disposition home or self-care (01) ==
LOC: RADUSWWP 07:30
PROVIDERS: ATTEND Family Medicine
DX: R31.9 Hematuria, unspecified (principal); R10.9 Unspecified abdominal pain; Z87.442 Personal history of urinary calculi
CPT/HCPCS: 76770